=== PATIENT | male | born 1970 | race Hispanic/Latino ===

== ENCOUNTER 2017-04-12 12:33 | Emergency (ER) | payer SELFPAY ==
[2017-04-12 12:58] LABS: EOSINOPHILS % (AUTO) 3.4 % (0.0-8.0); HEMATOCRIT 39.8 % (42-54); LYMPHOCYTES % (AUTO) 35.6 % (21.0-51.0); MEAN CORPUSCULAR HEMOGLOBIN 30.2 pg (27.0-33.0); MEAN CORPUSCULAR HGB CONC 33.6 g/dL (32.0-36.0); MEAN CORPUSCULAR VOLUME 89.7 fL (79-99); MONOCYTES % (AUTO) 8.9 % (3.0-13.0); NEUTROPHILS % (AUTO) 51.1 % (40.0-77.0); PLATELET COUNT (AUTO) 213 K/uL (130-400); RED BLOOD CELL COUNT(AUTO) 4.44 MIL/uL (4.50-6.20); RED CELL DISTRIBUTION WIDTH 13.5 % (11.0-15.5); WHITE BLOOD COUNT (AUTO) 4.9 K/uL (4.8-10.8)
[2017-04-12 13:07] LABS: CREATININE 0.8 mg/dL (0.5-1.5)
[2017-04-12 13:12] LABS: ALBUMIN 3.4 g/dL (3.5-5.0); BILIRUBIN,TOTAL 0.1 mg/dL (0.2-1.0); TOTAL PROTEIN, SERUM 6.8 g/dL (6.0-8.3)
[2017-04-12] MEDS ORDERED: ACETAMINOPHEN-CODEINE 300/30MG TAB ONE (14:26)
== END 2017-04-12 14:37 | disposition home or self-care (01) ==
LOC: EDH 12:33
DX: M25.512 Pain in left shoulder (principal); G40.89 Other seizures; I25.10 Atherosclerotic heart disease of native coronary artery without angina pectoris; M19.90 Unspecified osteoarthritis, unspecified site; Z95.0 Presence of cardiac pacemaker; Z79.899 Other long term (current) drug therapy; W01.0XXA Fall on same level from slipping, tripping and stumbling without subsequent striking against object, initial encounter; Y93.89 Activity, other specified; Y92.89 Other specified places as the place of occurrence of the external cause; Y99.8 Other external cause status
CPT/HCPCS: 36415; 73030; 80053; 85025

== ENCOUNTER 2017-04-28 16:26 | Emergency (ER) | payer SELFPAY ==
[2017-04-28] MEDS ORDERED: ASPIRIN 325 MG TABLET ONE (17:03)
[2017-04-28 17:04] LABS: BASOPHILS % (AUTO) 0.5 % (0.0-5.0); EOSINOPHILS % (AUTO) 2.4 % (0.0-8.0); HEMATOCRIT 39.9 % (42-54); LYMPHOCYTES % (AUTO) 33.4 % (21.0-51.0); MEAN CORPUSCULAR HEMOGLOBIN 30.8 pg (27.0-33.0); MEAN CORPUSCULAR HGB CONC 34.5 g/dL (32.0-36.0); MEAN CORPUSCULAR VOLUME 89.3 fL (79-99); MONOCYTES % (AUTO) 6.2 % (3.0-13.0); NEUTROPHILS % (AUTO) 57.5 % (40.0-77.0); PLATELET COUNT (AUTO) 229 K/uL (130-400); RED BLOOD CELL COUNT(AUTO) 4.46 MIL/uL (4.50-6.20); RED CELL DISTRIBUTION WIDTH 13.4 % (11.0-15.5); WHITE BLOOD COUNT (AUTO) 5.8 K/uL (4.8-10.8)
[2017-04-28 17:16] LABS: INR 0.95 (0.85-1.15); PARTIAL THROMBOPLASTIN TIME 25.6 SEC (26.3-35.5)
[2017-04-28 17:17] LABS: CARBON DIOXIDE 28 mmol/L (21-32); CHLORIDE 104 mmol/L (101-111); CREATININE 0.9 mg/dL (0.5-1.5); GLOMERULAR FILTR. RATE CALC 96 mL/min (>60); GLUCOSE,RANDOM 103 mg/dL (70-105); POTASSIUM 4.3 mmol/L (3.5-5.1); SODIUM SERUM 139 mmol/L (136-145); UREA NITROGEN, BLOOD 11 mg/dL (7-18)
[2017-04-28 17:34] LABS: ALANINE AMINOTRANSFERASE 25 U/L (12-78); ALBUMIN 3.4 g/dL (3.5-5.0); ASPARTATE AMINOTRANSFERASE 17 U/L (10-37); BILIRUBIN,TOTAL 0.1 mg/dL (0.2-1.0); CREATINE KINASE MB < 0.5 ng/mL (0.5-3.6); CREATINE KINASE, TOTAL 103 U/L (21-232); MYOGLOBIN 72 ng/mL (10-92)
[2017-04-28 17:40] LABS: B-TYPE NATRIURETIC PEPTIDE < 5 pg/mL (0-100)
[2017-04-28] MEDS ORDERED: NITROGLYCERIN 0.4 MG SL TAB SL ONE (17:40)
[2017-04-28] MEDS ORDERED: KETOROLAC TROMETHAMINE 30MG/ML ONE (18:48)
== END 2017-04-28 22:46 | disposition home or self-care (01) ==
LOC: EDH 16:26
DX: R07.9 Chest pain, unspecified (principal); R51 Headache; H53.8 Other visual disturbances
CPT/HCPCS: 36415; 71045; 80053; 82550; 82553; 83874; 83880; 84484 ×2; 85025; 85610; 85730; 93005 ×2; 94761; 96374; 99291; J1885

== ENCOUNTER 2018-03-21 09:59 | Emergency (ER) | payer OTHER ==
[2018-03-21] MEDS ORDERED: DIAZEPAM 5 MG TABLET ONE (10:48)
[2018-03-21] MEDS ORDERED: KETOROLAC TROMETHAMINE 30MG/ML ONE (10:48)
== END 2018-03-21 12:13 | disposition home or self-care (01) ==
LOC: EDH 09:59
DX: S60.212A Contusion of left wrist, initial encounter (principal); M19.90 Unspecified osteoarthritis, unspecified site; F32.9 Major depressive disorder, single episode, unspecified; Z95.0 Presence of cardiac pacemaker; W18.39XA Other fall on same level, initial encounter; Y93.89 Activity, other specified; Y92.89 Other specified places as the place of occurrence of the external cause; Y99.8 Other external cause status
CPT/HCPCS: 72100; 73110; 96372; 99283; J1885

== ENCOUNTER 2018-07-14 19:04 | Emergency (ER) | payer OTHER ==
[2018-07-14] MEDS ORDERED: ONDANSETRON HCL 4 MG/2 ML VIAL ONE (19:33)
[2018-07-14] MEDS ORDERED: FAMOTIDINE/PF 20 MG/2 ML VIAL IV ONE (19:33)
[2018-07-14 19:49] LABS: CORRECTED WHITE BLOOD COUNT 7.5 K/uL (4.5-11.0); RED BLOOD CELL COUNT(AUTO) 4.54 MIL/uL (4.50-6.20); WHITE BLOOD COUNT (AUTO) 7.5 K/uL (4.8-10.8)
[2018-07-14 19:50] LABS: BASOPHILS % (AUTO) 0.5 % (0.0-5.0); EOSINOPHILS % (AUTO) 3.2 % (0.0-8.0); HEMATOCRIT 41.6 % (42-54); MEAN CORPUSCULAR HEMOGLOBIN 31.5 pg (27.0-33.0); MEAN CORPUSCULAR HGB CONC 34.5 g/dL (32.0-36.0); MEAN CORPUSCULAR VOLUME 91.5 fL (79-99); MONOCYTES % (AUTO) 8.3 % (3.0-13.0); PLATELET COUNT (AUTO) 212 K/uL (130-400); RED CELL DISTRIBUTION WIDTH 13.7 % (11.0-15.5)
[2018-07-14] MEDS ORDERED: LIDOCAINE HCL 2% VISCOUS 15 ML UDCUP ONE (20:06)
[2018-07-14] MEDS ORDERED: MAG HYDROX/AL HYDROX/SIMETH ES 30 ML SUSP UDCUP ONE (20:06)
[2018-07-14 20:10] LABS: POTASSIUM 4.4 mmol/L (3.5-5.1)
[2018-07-14 21:04] LABS: BILIRUBIN,TOTAL 0.1 mg/dL (0.2-1.0)
[2018-07-14 21:05] LABS: ALBUMIN 3.7 g/dL (3.5-5.0); TOTAL PROTEIN, SERUM 7.3 g/dL (6.0-8.3)
[2018-07-14] MEDS ORDERED: SUCRALFATE 1 GM TABLET ONE (21:27)
== END 2018-07-14 22:28 | disposition home or self-care (01) ==
LOC: EDH 19:04
DX: K29.00 Acute gastritis without bleeding (principal); M19.90 Unspecified osteoarthritis, unspecified site; F32.9 Major depressive disorder, single episode, unspecified
CPT/HCPCS: 36415; 80053; 82550; 83690; 84484; 85025; 86677; 93005; 96374; 96375; 99285; J2405; J3490

== ENCOUNTER → 2021-05-31 | Outpatient (CLI) | payer OTHER | END | disposition home or self-care (01) | LOC: RAH 13:08 | PROVIDERS: ATTEND Internal Medicine Cardiovascular Disease | DX: Z13.6 Encounter for screening for cardiovascular disorders (principal) | CPT/HCPCS: 75571 ==

== ENCOUNTER 2021-10-21 22:39 | Emergency (ER) | payer MEDICAID, OTHER ==
[~2021-10-21] VITALS: Ht 165.1 cm; Wt 122.5 kg
[2021-10-21 22:46] VITALS: BP 122/45
[2021-10-21 23:10] LABS: BASOPHILS % (AUTO) 0.5 % (0.0-5.0); EOSINOPHILS % (AUTO) 2.1 % (0.0-8.0); HEMATOCRIT 40.3 % (42-54); LYMPHOCYTES % (AUTO) 30.1 % (21.0-51.0); MEAN CORPUSCULAR HEMOGLOBIN 29.4 pg (27.0-33.0); MEAN CORPUSCULAR HGB CONC 33.3 g/dL (32.0-36.0); MEAN CORPUSCULAR VOLUME 88.4 fL (79-99); MONOCYTES % (AUTO) 7.8 % (3.0-13.0); NEUTROPHILS % (AUTO) 59.3 % (40.0-77.0); PLATELET COUNT (AUTO) 245 K/uL (130-400); RED BLOOD CELL COUNT(AUTO) 4.56 MIL/uL (4.50-6.20); RED CELL DISTRIBUTION WIDTH 13.2 % (11.0-15.5); WHITE BLOOD COUNT (AUTO) 8.8 K/uL (4.8-10.8)
[2021-10-21 23:29] LABS: ALBUMIN 4.2 g/dL (3.5-5.0); POTASSIUM 3.5 mmol/L (3.5-5.1); TOTAL PROTEIN, SERUM 7.3 g/dL (6.0-8.3)
[2021-10-22] MEDS ORDERED: HYDROCODONE/ACETAMINOPHEN 5/325 MG TAB PO ONE (01:30)
== END 2021-10-22 02:50 | disposition home or self-care (01) ==
LOC: EDH 22:39
DX: R07.89 Other chest pain (principal); R53.1 Weakness; G40.909 Epilepsy, unspecified, not intractable, without status epilepticus; I25.10 Atherosclerotic heart disease of native coronary artery without angina pectoris; Z95.810 Presence of automatic (implantable) cardiac defibrillator; E66.9 Obesity, unspecified; Z68.41 Body mass index [BMI] 40.0-44.9, adult
CPT/HCPCS: 36415; 71045; 80053; 82550; 83880; 84484; 85025; 93005

== ENCOUNTER → 2021-11-15 | Outpatient (CLI) | payer MEDICAID | END | disposition home or self-care (01) | LOC: SHCH 11:11 | PROVIDERS: ATTEND Internal Medicine Cardiovascular Disease | DX: R00.2 Palpitations (principal) | CPT/HCPCS: 93306 ==

== ENCOUNTER 2022-05-17 09:12 | Day surgery (SDC) | payer MEDICAID ==
[~2022-05-17] VITALS: Ht 165.1 cm; Wt 112.5 kg
[2022-05-17] VITALS (8 sets, daily range): BP systolic 87–110; BP diastolic 58–68
[~2022-05-17 09:12] MED LIST: ATOR10 PO; LAMO300T2 PO; SERT100T PO; TRAZ-187 PO
[2022-05-17] MEDS ORDERED: PROPOFOL 10 MG/ML 20ML VIAL IV ONE (12:57)
[2022-05-17] MEDS ORDERED: GLYCOPYRROLATE 1 MG/5 ML SYRINGE ONE (12:59)
== END 2022-05-17 13:45 | disposition home or self-care (01) ==
LOC: DAH 09:12
PROVIDERS: ATTEND Internal Medicine Gastroenterology
DX: Z12.11 Encounter for screening for malignant neoplasm of colon (principal); Z20.822 Contact with and (suspected) exposure to COVID-19; K64.0 First degree hemorrhoids; E78.5 Hyperlipidemia, unspecified; E11.9 Type 2 diabetes mellitus without complications; F32.A Depression, unspecified; M19.90 Unspecified osteoarthritis, unspecified site; Z98.890 Other specified postprocedural states; Z90.89 Acquired absence of other organs; Z79.899 Other long term (current) drug therapy; Z82.49 Family history of ischemic heart disease and other diseases of the circulatory system; Z83.3 Family history of diabetes mellitus; Z80.8 Family history of malignant neoplasm of other organs or systems
CPT/HCPCS: 87635; 45378; J3490 ×2; A4620; A4215; A4223; A7002; A4222; A4216; J7030; J2704